=== PATIENT | female | born 1970 | race Caucasian/White ===

== ENCOUNTER 2024-05-02 16:38 | Emergency (ER) | payer OTHER, SELFPAY ==
[2024-05-02 16:44] VITALS: BP 152/87; PULSE 106; RESP 22; TEMP 36.7; O2SAT 100
--- NOTE | 2024-05-02 17:04 | XR_ITS ---
Examination: AP chest single view Technique: AP portable upright chest single view Exam date and time: May 02, 2024 1718 hrs. Indications: Wheezing today. Findings: Normal heart size No pneumonia or pulmonary edema Mild elevation right hemidiaphragm Impression: No pneumonia or pulmonary edema
[2024-05-02 17:10] VITALS: PULSE 122; O2SAT 87; BMI 32.9
[2024-05-02 17:46] LABS: Basophils % (Auto) 1 % (0-2.5); Eosinophils # (Auto) 0.3 Thou/mm3 (0.0-0.5); Eosinophils % (Auto) 3 % (0-10); Hematocrit 36.2 % (36.0-46.0); Hemoglobin 12.3 g/dL (12.0-16.0); Immature Granulocytes % (Auto) 0 % (0-0); Immature Granulocytes Auto 0.02 Thou/mm3 (0.00-0.00); Lymphocytes # (Auto) 1.8 Thou/mm3 (1.0-4.8); Lymphocytes % (Auto) 24 % (10-50); Mean Corpuscular Hemoglobin 28.6 pg (25.0-35.0); Mean Corpuscular Volume 84 fL (80-100); Monocytes # (Auto) 0.4 Thou/mm3 (0.0-0.8); Monocytes % (Auto) 6 % (0-12); Neutrophils # (Auto) 4.8 Thou/mm3 (1.8-7.7); Neutrophils % (Auto) 66 % (37-80); Nucleated Red Blood Cell % 0 /100 WBC (0); Platelet Count 291 Thou/mm3 (140-440); RDW Standard Deviation 38.9 fL (36.4-46.3); White Blood Count 7.3 Thou/mm3 (3.6-11.0)
[2024-05-02] MEDS: DEXAMETHASONE SOD PHOS INJ 4 MG/ML VIAL 10 MG IVP (18:06)
[2024-05-02] MEDS: DiphenhydrAMINE INJ 50 MG/ML VIAL 25 MG IV (18:07)
[2024-05-02 18:11] LABS: Alanine Aminotransferase 25 U/L (10-49); Albumin, Serum 4.3 gm/dL (3.5-5.0); Albumin/Globulin Ratio 1.7 (1.2-2.2); Alkaline Phosphatase 92 U/L (46-116); Anion Gap 9 (7-16); Aspartate Amino Transferase 17 U/L (0-34); BUN/Creatinine Ratio 28 Ratio (12-20); Bilirubin,Total 0.5 mg/dL (0.3-1.2); Blood Urea Nitrogen 22 mg/dL (9-23); Calcium 9.3 mg/dL (8.3-10.6); Calcium (Corrected) 9.3 mg/dL (8.5-10.1); Carbon Dioxide 25.7 mMol/L (20.0-31.0); Chloride 105 mMol/L (98-107); Creatinine (Component) 0.8 mg/dL (0.6-1.3); Estimated Creatinine Clearance 82.4 mL/min (>60); Globulin 2.5 gm/dL (2.3-3.5); Glucose 191 mg/dL (74-106); Osmolality,Calculated 287 (275-295); Sodium 140 mMol/L (136-145); Total Protein 6.8 gm/dL (5.7-8.2); eGFR > 60 See Note
[2024-05-02 18:12] VITALS: BP 161/90; PULSE 90; RESP 18; TEMP 36.7; O2SAT 100
--- NOTE | 2024-05-02 19:12 | PD.EDADULT ---
ED General RME/HPI General Chief complaint: Shortness of Breath/Dyspnea Stated complaint: SOB Time Seen by Provider: 05/02/24 16:56 Arrival date/time: 05/02/24 16:38 CC: Throat swelling shortness of breath HPI patient presents to the ER via EMS who state the patient oxygen saturations of 86% and was short of breath. The patient states she started to have tingling and swelling in her throat. After eating a fast food hamburger. The patient states she has allergies to seasonal issues but no food allergies per se however sheepishly the patient admits that after eating 2 bags of M&Ms she gets a scratchy swollen throat. Patient denies cough or shortness of breath at the time of the exam EMS report having been given epi, and 2 albuterol inhalers. Patient is nontoxic-appearing not in any acute distress. Related Data Previous Rx's ?Medication ?Instructions ?Recorded epinephrine 0.3 mg/0.3 mL 0.3 ml subcut PRN PRN 05/02/24 injection, auto-injector (EpiPen hypersensitivity reaction #2 ea 2-Lalo) prednisone 20 mg tablet See Taper PO BID 3 days #6 tabs 05/02/24 Review of Systems Review of Systems Narrative Review of Systems: GEN: No fever, no chills, no weight loss EYES: No discharge, no visual changes, no pain HEENT: No ear pain, no congestion, no sore throat,+ swelling throat . PULM: No shortness of breath, no cough, no congestion CV: No chest pain, no dyspnea on exertion, no palpitations GI: No nausea, no vomiting, no diarrhea, no pain, no constipation : No frequency, no urgency, no dysuria MUSC/SKEL: No joint pain, no back pain SKIN: No rash PSYCH: No hallucinations, no depression HEME/LYMPH: No easy bleeding or bruising tendencies NEURO: No weakness, no headache Past Medical History Past Medical History NEUROLOGIC: Negative Neurological Disorders CARDIAC: Positive Cardiac Disorders and Hypertension; Negative Congestive Heart Failure RESPIRATORY: Positive Respiratory Disorders, Asthma and Bronchitis; Negative Chronic Obstructive Pulmonary Disease (COPD) GASTROINTESTINAL: Negative Gastrointestinal Disorders GENITOURINARY: Negative Genitourinary Disorders or Renal Disease MUSCULOSKELETAL: Negative Musculoskeletal Disorders ENT: Negative History of ENT Problems ENDOCRINE: Negative Endocrine Disorders, Diabetes Mellitus Type 1 or Diabetes Mellitus Type 2 HEMATOLOGIC: Negative Blood Disorders Family History FAMILY HISTORY: Negative Family Cardiac Disorders Social History SMOKING STATUS: Never smoker ED Exam Narrative Physical exam: [General: Obese anxious but not in any acute distress Head normocephalic HEENT: Eyes pupils are PERRLA EOMs are intact no facial edema facial asymmetry, mouth pink moist membranes no edematous tongue uvula is visible swallow symmetrical phonation is normal. Nose: No rhinorrhea epistaxis. All other subsystems of HEENT are within acceptable limits Neck is supple nontender no LAD no JVD, no stridor on auscultation. Chest equal chest rise nontender to palpation Respiratory: Clear to auscultation no wheezes crackles or rubs CV: Rate rhythm is regular no murmurs rubs or clicks Abdomen is distended secondary to body habitus soft nontender no masses positive bowel sounds all 4 quadrants Back: No CVA tenderness no spinous process tenderness from cervical spine thoracic and lumbar spine Skin: No hives, rashes. Skin is intact no petechiae rash induration ulceration or crepitus Extremities: Moving all extremity against resistance cap refill less than 2 seconds neurosensory intact Neuro: Awake alert oriented x3 Glascow coma 15 no focal deficits] Course Quality Measures none Orders Category Date Time Status Saline [Insert IV] NOW Care 05/02/24 17:04 Active XR chest 1V Stat Exams 05/02/24 17:04 Completed CBC Stat Lab 05/02/24 17:26 Completed CMP [Comprehensive Metabolic Panel] Stat Lab 05/02/24 17:26 Completed Dexamethasone Inj [Decadron Inj] Med 05/02/24 17:04 Discontinued 10 mg IVP X1 ONE DiphenhydrAMINE INJ [Benadryl Inj] Med 05/02/24 17:06 Discontinued 25 mg IV X1 ONE KCL 10% Liq UDC 15 ML Med 05/02/24 18:16 Discontinued 40 meq GT X1 ONE Vital Signs Vital signs: Vital Signs Temperature 98.0 F 05/02/24 16:44 Pulse Rate 106 H 05/02/24 16:44 Respiratory Rate 22 H 05/02/24 16:44 Blood Pressure 152/87 H 05/02/24 16:44 Pulse Oximetry (%) 100 05/02/24 16:44 Oxygen Delivery Method Nasal Cannula 05/02/24 16:44 Oxygen Flow Rate 6 05/02/24 16:[address] [facility] Patient data External records reviewed:: [facility] previous records and EMS form Clinical information provided by:: patient and EMS Social determinants that could affect healthcare access:: none Patient has the following chronic illnesses:: Hypertension How is presenting disease/condition affected by chronic disease/condition?: uneffected by Evaluation data The following diagnostics were reviewed and interpreted by me:: lab results and radiology exam(s) Lab and/or radiology exams considered but not ordered:: CBC shows mild leukocytosis no anemia thrombocytopenia CMP shows no acute electrolyte imbalances renal impairment transaminitis or T. bili elevation Chest x-ray shows no acute finding requires emergent or immediate intervention. Interpretation Summary: After steroids and 2 hours of observation the patient is doing well with no real hives or recurrence of throat swelling or difficulty breathing repeat exams showed no stridor on auscultation. Patient will be discharged home on steroids to follow-up with her primary care provider will discharge the patient with an EpiPen. Medications Medications considered but not ordered:: None Medication administrations:: Medication Administration History Discontinued Medications Dexamethasone Sodium Phosphate (Dexamethasone Sod Phos Inj 4 Mg/Ml Vial) 10 mg IVP X1 ONE; Protocol Stop: 05/02/24 17:05 Last Admin: 05/02/24 18:06 Dose: 10 mg Documented By: DIDIER Diphenhydramine HCl (Diphenhydramine Inj 50 Mg/Ml Vial) 25 mg IV X1 ONE Stop: 05/02/24 17:07 Last Admin: 05/02/24 18:07 Dose: 25 mg Documented By: DIDIER Potassium Chloride (Potassium Chloride 10% 20 Meq/15 Ml Udc) 40 meq GT X1 ONE Stop: 05/02/24 18:17 None Consultations Consultation(s) initiated? (list below): No Diagnosis Differential Diagnosis ED Complaint MDM: Food allergy peanut allergy urticaria Most likely diagnosis given after review of the tests above:: Suspected food allergy anaphylaxis Admission Indicated Admission indicated?: not indicated Explain why admission is indicated or not indicated:: Stable for outpatient follow-up Admission Request Was there a request for admission?: No Disposition Plan Disposition Plan: Discharge Discharge Attestation Discharge Attestation: The patient and all family members were given an opportunity to ask questions and understood the discharge instructions. Discharge instructions specifically effects, indications for sooner follow up or return to the emergency department, and the expected course of current diagnosis. Patient condition: Stable Medical Decision Making Differential Diagnosis Differential Diagnosis: Food allergy peanut allergy urticaria Lab Data 05/02/24 17:26 05/02/24 17:26 Labs: Lab Results 05/02/24 Range/Units 17:26 WBC 7.3 (3.6-11.0) Thou/mm3 RBC 4.30 (4.00-5.20) Miln/mm3 Hgb 12.3 (12.0-16.0) g/dL Hct 36.2 (36.0-46.0) % MCV 84 (80-100) fL MCH 28.6 (25.0-35.0) pg MCHC 34.0 (31.0-37.0) g/dl RDW Std Deviation 38.9 (36.4-46.3) fL Plt Count 291 (140-440) Thou/mm3 Neut % (Auto) 66 (37-80) % Lymph % (Auto) 24 (10-50) % [place] % (Auto) 6 (0-12) % Eos % (Auto) 3 (0-10) % Baso % (Auto) 1 (0-2.5) % Neut # (Auto) 4.8 (1.8-7.7) Thou/mm3 Lymph # (Auto) 1.8 (1.0-4.8) Thou/mm3 [place] # (Auto) 0.4 (0.0-0.8) Thou/mm3 Eos # (Auto) 0.3 (0.0-0.5) Thou/mm3 Baso # (Auto) 0.0 (0.0-0.2) Thou/mm3 Immature Gran # (Auto) 0.02 H (0.00-0.00) Thou/mm3 Absolute Nucleated RBC 0.00 (0.00-0.00) Thou/mm3 Immature Gran % 0 (0-0) % Nucleated RBC % 0 (0) /100 WBC Sodium 140 (136-145) mMol/L Potassium 3.0 L (3.4-5.1) mMol/L Chloride 105 (98-107) mMol/L Carbon Dioxide 25.7 (20.0-31.0) mMol/L Anion Gap 9 (7-16) BUN 22 (9-23) mg/dL Creatinine 0.8 (0.6-1.3) mg/dL Estim Creat Clear Calc 82.4 (>60) mL/min eGFR > 60 (60 - ) See Note BUN/Creatinine Ratio 28 H (12-20) Ratio Glucose 191 H (74-106) mg/dL Calculated Osmolality 287 (275-295) Calcium 9.3 (8.3-10.6) mg/dL Corrected Calcium 9.3 (8.5-10.1) mg/dL Total Bilirubin 0.5 (0.3-1.2) mg/dL AST 17 (0-34) U/L ALT 25 (10-49) U/L Alkaline Phosphatase 92 (46-116) U/L Total Protein 6.8 (5.7-8.2) gm/dL Albumin 4.3 (3.5-5.0) gm/dL Globulin 2.5 (2.3-3.5) gm/dL Albumin/Globulin Ratio 1.7 (1.2-2.2) Discharge Plan Plan Patient Disposition: HOME (Self Care) Patient condition on transfer: Stable Prescriptions/Referrals Prescriptions/Med Rec: New epinephrine [EpiPen 2-Lalo] 0.3 mg/0.3 mL auto-injector 0.3 ml subcut PRN PRN (Reason: hypersensitivity reaction) Qty: 2 0RF prednisone 20 mg tablet See Taper PO BID 3 Days Qty: 6 0RF Taper: Prednisone Taper 20 mg DAILY for 2 Days and 0 Hour 10 mg DAILY for 2 Days and 0 Hour 5 mg DAILY for 7 Days and 0 Hour Referrals: Titus Frederick MD [Physician] - In 1 week No Primary/Family,Physician [Primary Care Provider] - In 1 week Problem List Clinical Impression: Anaphylaxis Patient/Caregiver Discharge Instructions Other Activity Instructions:: I am not sure what you are allergic to however if your throat swells again please use the EpiPen immediately and call 911. Follow-up with your primary care doctor you may need an allergen specialist to determine what the trigger is for this. Education Materials: ED Anaphylaxis Print Language: Haitian Stand Alone Forms: Nena Award Info., Patient Portal Info Letter, Work/School Release BEV/NILE Supervising Physician BEV/NILE Supervising Physician: Rolando Hillman ENP
[2024-05-02] MEDS: POTASSIUM CHLORIDE 10% 20 MEQ/15 ML UDC 40 MEQ GT (19:15)
[2024-05-02 19:28] VITALS: BP 141/89; PULSE 85; RESP 18; TEMP 36.7; O2SAT 100
== END 2024-05-02 19:30 | disposition home or self-care (01) ==
PROVIDERS: Registered Nurse General Practice; Emergency Provider Emergency Medicine
DX: T78.00XA Anaphylactic reaction due to unspecified food, initial encounter (principal)
CPT/HCPCS: 36415; 71045; 80053; 85025; 99284; J1100; J1200; A9270